=== PATIENT | female | born 1950 | race Caucasian/White ===

== ENCOUNTER → 2019-02-01 | Day surgery (SDC) | payer MEDICARE, OTHER ==
--- NOTE | 2019-02-01 08:47 | MMO ---
Stereotactic Left breast biopsy Biopsy marking clip placement of left breast INDICATION: Left breast calcifications PROCEDURE: Informed consent was obtained and the patient was escorted to the procedural suite, placed in a prone position. Breast was placed into compression. Calcifications of interest were localized utilizing stereotactic imaging. Standard sterile prepping and draping and topical anesthesia with buffered 1% lidocaine was achieved, followed by a small skin incision. A 10-gauge vacuum-assisted stereotactic needle was then advanced to the leading edge of the calcifica tions, confirmed with mammographic imaging. Needle was then deployed. 7 core specimens were then acquired from the site of interest. The specimens were radiographed which did reveal calcifications of interest. Needle was removed. A biopsy marking clip was then advanced to the site of biopsy and a marking clip was deployed. There were no procedural complications. Patient tolerated the procedure well. Patient was transferred to mammography to undergo postprocedural clip placement views. IMPRESSION: Technically successful stereotactic biopsy of left breast, yielding calcifications of int erest. Pathology results are pending. The patient will be notified of the results when they are received.
--- NOTE | 2019-02-01 08:50 | MMO ---
Specimen radiograph, left breast CLINICAL HISTORY: Status post stereotactic biopsy of left breast for calcifications of the lower inne r quadrant left breast FINDINGS: Specimen radiographs do reveal calcific density within the excised specimens. IMPRESSION: Calcific density is seen within the radiographed specimens.
--- NOTE | 2019-02-03 20:55 | MMO ---
Diagnostic left mammogram CLINICAL HISTORY: Postprocedural diagnostic left mammogram, status post stereotactic biopsy for calci fications of the lower inner quadrant left breast. There is heterogeneously dense breast parenchyma bilaterally. There is a clip which has been deployed at site of microcalcifications of interest within the slightly medial lower left breast, middle depth, with decreased number of calcifications demonstrated. IMPRESSION: Status post stereotactic biopsy and clip deployment with clip residing at the site of ismael cifications of interest. Transcribed Date/Time: 02/03/2019 9:10 PM BI-RADS 3 -- probably benign, 6-month follow-up
== END ==
LOC: MAMMO 06:57
PROVIDERS: ATTEND Physician Assistant
PROC: 0HBU3ZX Excision of Left Breast, Percutaneous Approach, Diagnostic (ICD-10-PCS; principal; 2019-02-01)
DX: R92.0 Mammographic microcalcification found on diagnostic imaging of breast (principal)
CPT/HCPCS: 19081; 76098; 88305

== ENCOUNTER 2022-03-11 11:09 | Outpatient (CLI) | payer MEDICARE | END 2022-03-11 11:10 | disposition home or self-care (01) | LOC: BICMAMMO 11:09 | DX: Z12.31 Encounter for screening mammogram for malignant neoplasm of breast (principal); Z91.89 Other specified personal risk factors, not elsewhere classified | CPT/HCPCS: 77063; 77067 ==